=== PATIENT | male | born 1995 | race Caucasian/White ===

== ENCOUNTER 2017-04-15 18:06 | Emergency (ER) | payer MEDICAID ==
[~2017-04-15] VITALS: Ht 175.3 cm; Wt 74.4 kg
[2017-04-15 18:13] VITALS: Ht 175.3 cm; Wt 74.4 kg
[2017-04-15 19:23] VITALS: BP 137/80
== END 2017-04-15 19:23 | disposition home or self-care (01) ==
LOC: ED 18:06
DX: S61.230A Puncture wound without foreign body of right index finger without damage to nail, initial encounter (principal); L03.011 Cellulitis of right finger; W45.8XXA Other foreign body or object entering through skin, initial encounter; Y93.89 Activity, other specified; Y92.89 Other specified places as the place of occurrence of the external cause; Y99.8 Other external cause status
CPT/HCPCS: 90715; J0696